=== PATIENT | female | born 2000 | race Native Hawaiian/Other Pacific Islander ===

== ENCOUNTER 2019-11-17 13:07 | Emergency (ER) | payer SELFPAY ==
[2019-11-17 13:13] VITALS: BP 139/90; PULSE 91; RESP 16; TEMP 36.6; O2SAT 100; BMI 33.8
--- NOTE | 2019-11-17 13:18 | DI.RAD.S_ITS ---
PROCEDURE: XR SHOULDER RT MIN 2V INDICATIONS: R shoulder pain/ swelling post injury TECHNIQUE: 3 views of the shoulder were acquired. COMPARISON: [facility], , CHEST 2 VIEW, 08/10/2016, 9:43. FINDINGS: Bones: No fractures or dislocations. No suspicious bony lesions. Visualized ribs appear intact. Borderline widening of the acromion clavicular joint is present. Soft tissues: No suspicious soft tissue calcifications. IMPRESSION: 1. No acute fracture of the right shoulder is evident. 2. Possible acromioclavicular joint separation injury. Please correlate clinically. Dictated by: José Smith M.D. on 11/17/2019 at 12:35 Approved by: José Smith M.D. on 11/17/2019 at 12:36
--- NOTE | 2019-11-17 13:38 | ED.UPPEXIN ---
HPI - Extremity Injury (Upper) <PASCUAL Smith - Last Filed: 11/17/19 20:31> General Chief Complaint: Extremity Injury, Upper Stated Complaint: thinks she dislocated shoulder Time Seen by Provider: 11/17/19 13:10 Source: patient Mode of arrival: Ambulatory History of Present Illness HPI narrative: 18-year-old female presents emergency department complaining of right shoulder pain. She states she ran out into this no in shorts and T-shirt and went to do a somersault but slipped and fell onto her right shoulder when her arm was hyperextended posteriorly. She complains of of a 6/10 dull aching pain the top of her shoulder that is worse with palpation, internal rotation. and arm extension. She took 800 mg of ibuprofen an hour ago. She denies any numbness, tingling, head injury, chest pain, collarbone pain, other injuries, nausea, vomiting, diarrhea, or other concerns. She denies any previous injury to her shoulder. Related Data Home Medications Medication Instructions Recorded Confirmed No Known Home Medications 11/17/19 11/17/19 Allergies Allergy/AdvReac Type Severity Reaction Status Date / Time No Known Drug Allergies Allergy Unverified 11/17/19 13:15 Review of Systems <PASCUAL Smith - Last Filed: 11/17/19 20:31> Review of Systems Narrative: REVIEW OF SYSTEMS: GENERAL: Denies fever or chills. HENT: No head trauma. EYES: No double vision or vision loss. CARDIOVASCULAR: No chest pain or syncope. RESPIRATORY: No shortness of breath or cough. GASTROINTESTINAL: No nausea, vomiting, diarrhea, or constipation. GENITOURINARY: No flank pain or dysuria. MUSCULOSKELETAL: Complains of right shoulder pain, see HPI. INTEGUMENTARY: No rash, lesions, or pruritus. NEURO: No numbness, tingling. PSYCH: No behavior or mood changes. Patient History <PASCUAL Smith - Last Filed: 11/17/19 20:31> Social History Smoking Status: Current every day smoker Smoking Status: Current every day smoker tobacco type: cigarettes Substance Use Type: marijuana Exam <PASCUAL Smith - Last Filed: 11/17/19 20:31> Initial Vital Signs Initial Vital Signs: Vital Signs Temperature 97.9 F 11/17/19 13:13 Pulse Rate 91 H 11/17/19 13:13 Respiratory Rate 16 11/17/19 13:13 Blood Pressure 139/90 11/17/19 13:13 Pulse Oximetry 100 11/17/19 13:13 PHYSICAL EXAMINATION: GENERAL: Well groomed, alert, and cooperative. Answers questions promptly and appropriately. Vital signs noted. HENT: Normocephalic, atraumatic. EYES: Symmetrical, sclera white, no periorbital swelling. CARDIOVASCULAR: S1 and S2 sounds normal. Regular rate and rhythm. RESPIRATORY: Normal respiratory rate, trachea midline, airway patent. No stridor, nasal flaring or accessory muscle use. MUSCULOSKELETAL: Moderate swelling to AC joint and shoulder. Decreased internal rotation and arm extension due to pain. No significant ecchymosis. No clavicle tenderness. No humeral, elbow, wrist, or hand tenderness. 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 Decreased deltoid strength due to pain. Normal gait and coordination. Equal tone and mass bilaterally. No spinal tenderness or deformities. EXTREMITIES: CMS intact. Radial pulses 2+ and intact bilaterally SKIN: Warm, dry, soft, appropriate color for ethnicity. No lesions, rashes, or wounds. NEURO: Alert and Oriented X 3. No sensory deficits. PSYCH: Appropriate affect and mood. <Shanthi Wiggins DO - Last Filed: 11/20/19 07:33> Initial Vital Signs Initial Vital Signs: Vital Signs Temperature 97.9 F 11/17/19 13:13 Pulse Rate 91 H 11/17/19 13:13 Respiratory Rate 16 11/17/19 13:13 Blood Pressure 139/90 11/17/19 13:13 Pulse Oximetry 100 11/17/19 13:13 Course <PASCUAL Smith - Last Filed: 11/17/19 20:31> Orders Ordered: ED Orders 11/17/19 13:18 XR shoulder RT min 2V Stat Consultations Consultation #1: Patient staffed with Dr. Wiggins. Vital Signs Vital signs: Vital Signs - 8 hr 11/17/19 13:13 Temperature 97.9 F Pulse Rate 91 H Respiratory Rate 16 Blood Pressure 139/90 Pulse Oximetry 100 <Shanthi Wiggins DO - Last Filed: 11/20/19 07:33> Orders Ordered: ED Orders 11/17/19 13:18 XR shoulder RT min 2V Stat Vital Signs Vital signs: Vital Signs - 8 hr 11/17/19 13:13 Temperature 97.9 F Pulse Rate 91 H Respiratory Rate 16 Blood Pressure 139/90 Pulse Oximetry 100 [facility] - Extremity Injury (Upper) <PASCUAL Smith - Last Filed: 11/17/19 20:31> Medical Records Attestation: I reviewed the patient's medical records. Lab Data Attestation: I reviewed the patient's lab results. Imaging Data Shoulder XR: Radiologist's Impression: [address] [address] XRay Report Signed Patient: Monae Antunez KMR#: [id number] : 2000Acct:[id number] Age/Sex: 18 / FDate of Service: 11/17/19 Loc: ED Accession Number: [id number] Procedure: XR shoulder RT min 2V Ordering Provider: Liz Chopra PROCEDURE: XR SHOULDER RT MIN 2V INDICATIONS: R shoulder pain/ swelling post injury TECHNIQUE: 3 views of the shoulder were acquired. COMPARISON: [facility], , CHEST 2 VIEW, 08/10/2016, 9:43. FINDINGS: Bones: No fractures or dislocations. No suspicious bony lesions. Visualized ribs appear intact. Borderline widening of the acromion clavicular joint is present. Soft tissues: No suspicious soft tissue calcifications. IMPRESSION: 1. No acute fracture of the right shoulder is evident. 2. Possible acromioclavicular joint separation injury. Please correlate clinically. Dictated by: José Smith M.D. on 11/17/2019 at 12:35 Approved by: José Smith M.D. on 11/17/2019 at 12:36 [facility] Narrative Medical decision making narrative: 18-year-old female complaining of traumatic right shoulder pain. X-ray shows possible AC separation which correlates with tenderness and swelling. Patient was given a sling she was encouraged to follow up with her primary care provider in 1-2 weeks for further evaluation. no concern for vascular compromise. Patient had already taken ibuprofen upon presentation to the emergency department. Return precautions given for new or worsening symptoms. Patient agreed with plan of care verbalized understanding. Discharge Plan Departure Patient Disposition: Home Clinical Impression: AC separation Qualifiers: Encounter type: initial encounter Laterality: right Qualified Code(s): S43.101A - Unspecified dislocation of right acromioclavicular joint, initial encounter Discharge Date/Time: 11/17/19 14:13 Instructions: DI for AC Joint Separation Activity Restrictions/Additional Instructions: Thank you for entrusting me with your care today. As discussed, your x-rays negative for fractures or dislocations. It is possible you have a acromioclavicular tear. We've given you a sling, uses as needed for stabilization and pain, remember to move your elbow and wrist frequently to prevent muscle wasting. Follow up with her primary care provider in 1-2 weeks for further evaluation. Return emergency department for new or worsening symptoms such as numbness, tingling, dizziness, syncope, chest pain, shortness of breath, or other concerns. Prescriptions: No Action No Known Home Medications RF: 0 Referrals: Khushbu Forrest ARNP [Primary Care Provider] - Stand Alone Forms: Work Release Note
== END 2019-11-17 14:13 | disposition home or self-care (01) ==
PROVIDERS: Emergency Provider Nurse Practitioner; PCP Nurse Practitioner
DX: S43.101A Unspecified dislocation of right acromioclavicular joint, initial encounter (principal); W00.0XXA Fall on same level due to ice and snow, initial encounter
CPT/HCPCS: 73030; 99283

== ENCOUNTER 2019-12-01 15:22 | Emergency (ER) | payer SELFPAY ==
[2019-12-01 15:24] VITALS: BP 122/82; PULSE 73; RESP 18; O2SAT 76
--- NOTE | 2019-12-01 17:03 | PC.NURSE ---
distal cms intact.
--- NOTE | 2019-12-02 01:27 | ED_ITS ---
HPI - Recheck/Abnormal Lab/Rx <PASCUAL Chavez - Last Filed: 12/02/19 01:44> General Chief Complaint: Recheck/Abnormal Lab/Rx Stated Complaint: re asssessment on shoulder/return to work Time Seen by Provider: 12/01/19 16:21 Source: patient Mode of arrival: Ambulatory Limitations: no limitations History of Present Illness HPI narrative: This is a 18-year-old female, smoker, who presents to ED requesting [employer] Return to Work Certification. Patient reports she had injured her right shoulder 2 weeks ago after she fell on ice and landed on her right shoulder. Patient was told she probably torn ligament on right shoulder. Patient states has been doing better and pain has been improved with increased range of motion. She has been taking [id number] ibuprofen for discomfort and inflammation. Patient does not have PCP and was not able to follow up with this injury after she was evaluated initially at walk-in clinic. Patient left dominant hand. 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 Related Data Home Medications Medication Instructions Recorded Confirmed No Known Home Medications 11/17/19 11/17/19 Allergies Allergy/AdvReac Type Severity Reaction Status Date / Time No Known Drug Allergies Allergy Unverified 11/17/19 13:15 Review of Systems <PASCUAL Chavez - Last Filed: 12/02/19 01:44> Review of Systems Narrative: General: Denies fever, chills, fatigue, malaise, sweats. HEENT: Denies sinus pain, ear pain, sore throat, difficulty swallowing, dizziness. Respiratory: Denies dyspnea, cough, wheezing, hemoptysis, sputum. Cardiovascular: Denies chest pain, palpitations, orthopnea, edema. Gastrointestinal: Denies nausea, vomiting, abdominal pain, diarrhea, constipation, melena. : Denies dysuria, frequency, incontinence, hematuria, urinary retention. Musculoskeletal: See HPI Skin: Denies rash, skin lesions, or other. Neurologic: Denies weakness, headache, numbness, change in speech, confusion, seizures, incoordination. Psychiatric: No concerning psychosocial issues. 12-point review of systems is negative except for those stated above. Patient History <PACSUAL Chavez - Last Filed: 12/02/19 01:44> Surgical History No pertinent past surgical history (Acute) Social History Smoking Status: Current every day smoker Smoking Status: Current every day smoker tobacco type: cigarettes alcohol intake frequency: 0-2 drinks per day Substance Use Type: marijuana Exam <PASCUAL Chavez - Last Filed: 12/02/19 01:44> Narrative Exam Narrative: General appearance: well developed, well nourished, in no acute distress. Head: normocephalic, atraumatic, no scalp lesions, non-tender. ENT: Hearing grossly intact. Nose without bleeding, purulent discharge, septal hematoma or deviation. Turbinate without erythema or swelling. Mucous membrane moist, no mucosal lesion. Throat without erythema, tonsillar hypertrophy or exudate. Uvula in midline, airway patent. Neck/Thyroid: neck supple, full range of motion, no visible masses or meningeal signs. No JVD, non-tender without lymphadenopathy. Skin: no suspicious rashes, lesions over visible areas. Warm and dry and appropriate color for ethnicity. Heart: no clubbing, no cyanosis, no edema. S1 and S2 normal. RRR w/o murmurs, clicks, or bruits. Lungs: Breathing even and unlabored. No stridor. No accessory muscles used. Able to speak in full sentences. Chest: normal shape and expansion. Abdomen: non-obese, non-distended. Neurologic: alert and oriented. Cognitive exam, PUBLIC HEALTH PHYSICIAN and PNS grossly intact on informal exam. Psych: good eye contact, normal affect. Initial Vital Signs Initial Vital Signs: Vital Signs Pulse Rate 73 12/01/19 15:24 Respiratory Rate 18 12/01/19 15:24 Blood Pressure 122/82 12/01/19 15:24 Pulse Oximetry 76 L 12/01/19 15:24 Extrem Right upper extremity: shoulder/upper arm Details: normal to inspection and abnormal ROM Details: with range as follows (forward flexion 90 degree, abduction 90 degree, limited internal and external rotation, decreased strength with grasp); no swelling, no crepitus, no deformity and no unusual warmth, elbow/forearm Details: normal to inspection and normal ROM; no tenderness and no swelling, wrist Details: normal to inspection, normal ROM, normal vascular exam and radial pulse present and hand Details: normal to inspection, normal capillary refill, neurosensory exam normal and normal ROM of fingers <Jose Devine MD - Last Filed: 12/02/19 21:33> Initial Vital Signs Initial Vital Signs: Vital Signs Pulse Rate 73 12/01/19 15:24 Respiratory Rate 18 12/01/19 15:24 Blood Pressure 122/82 12/01/19 15:24 Pulse Oximetry 76 L 12/01/19 15:24 Scores <PASCUAL Chavez - Last Filed: 12/02/19 01:44> GCS [place] coma scale eye opening: Spontaneous [place] coma scale verbal response: Orientated [place] coma scale motor response: Obey commands [place] coma scale total score: 15 MDM - Recheck/Abnormal Lab/Rx <PASCUAL Chavez - Last Filed: 12/02/19 01:44> Differential Diagnosis Differential diagnosis: Likely other (encounter for evaluation for work certification) Medical Records Attestation: I reviewed the patient's medical records. [facility] Narrative Medical decision making narrative: This is a 18 year old female who presented to ED requesting return to work certification after injury to R shoulder 2wks ago. Preprinted form was filled with work modification from 12/02/19 to 01/02/2020 and to get another evaluation for another release. R upper extremity use modification for LITF , Carry, and Push/pull with forceful Grasp and work above shoulder and crawl. This form has been copied after instruction has been filled and signed to keep it in medical record. Patient advised to find PCP and receive a referral to a physical therapist. Review brief rehabilitation exercises at home with rubber band to strength it increased flexibility. Patient verbalized understanding and agrees with the treatment plan. Discharge Plan Departure Patient Disposition: Home Clinical Impression: Encounter for rehabilitation evaluation Discharge Date/Time: 12/01/19 17:04 Instructions: DI for Shoulder Pain Activity Restrictions/Additional Instructions: You have been diagnosed with [ improving R shoulder injury and an encounter for an evaluation to return to work ]. What to do: *Take your medications as directed. Please continue to take ibuprofen 400-600 mg 3 times a day with food. You can add Tylenol 650 mg 4 times a day as needed for discomfort. You were provided with copy of work modification form from your work which was filled. *Follow up with your primary care provider in 2-3 days, call for an appointment. Let them know you were seen in the ED and that we asked you to be seen in follow up. It is best if you get a referral for physical therapist to rehabilitate and work on her strength and flexibility. *Return to ED if you have any new, worsening, or concerning symptoms, such as [chest pain, breathing difficulty, unable to tolerate fluids, worsening pain, fever or any acute concerns.]. Prescriptions: No Action No Known Home Medications RF: 0 Referrals: Khushbu Forrest ARNP [Primary Care Provider] -
== END 2019-12-01 17:04 | disposition home or self-care (01) ==
PROVIDERS: Emergency Provider Nurse Practitioner Family; Family Provider Nurse Practitioner; PCP Nurse Practitioner
DX: Z01.89 Encounter for other specified special examinations (principal); S49.91XA Unspecified injury of right shoulder and upper arm, initial encounter; W00.0XXA Fall on same level due to ice and snow, initial encounter; Y99.0 Civilian activity done for income or pay
CPT/HCPCS: 99281; 99283

== ENCOUNTER 2021-03-03 10:29 | Emergency (ER) | payer OTHER, SELFPAY ==
[2021-03-03 11:03] VITALS: BP 121/82; PULSE 76; RESP 14; TEMP 36.7; O2SAT 100; BMI 22.4
[2021-03-03 11:25] LABS: Add Manual Diff / Slide Review NO; Basophils Absolute Auto 100 /uL (0-100); Basophils Percent Auto 0.6 % (0-2); Eosinophils Absolute Auto 100 /uL (0-450); Eosinophils Percent Auto 0.7 % (2-4); Hematocrit 35.4 % (36-46); Hemoglobin 11.8 g/dL (12.0-16.0); Lymphocytes Absolute Auto 1800 /uL (1100-4500); Lymphocytes Percent Auto 21.6 % (25-40); Mean Corpuscular HGB Conc 33.3 % (30-36); Mean Corpuscular Hemoglobin 29.6 PG (26-34); Mean Corpuscular Volume 88.8 fL (80-100); Monocytes Absolute Auto 500 /uL (0-900); Monocytes Percent Auto 6.1 % (3-14); Neutrophils Absolute Auto 5900 /uL (1500-7000); Platelet Count 370 X10^3/uL (150-400); Red Blood Cell Count 3.98 X10^6/uL (4.0-5.2); Red Cell Distribution Width 12.4 % (11.6-14.8); White Blood Cell Count 8.3 X10^3/uL (4.5-11.0)
[2021-03-03 11:29] LABS: INR 1.2 (0.9-1.3); Prothrombin Time 13.2 SECONDS (10.1-12.7)
[2021-03-03 11:30] LABS: Bacteria Urine None Seen; RBC Urine None Seen (0-5/HPF); WBC Urine None Seen (0-5/HPF)
[2021-03-03 11:32] LABS: PTT Partial Thromboplastin Tim 32 SECONDS (26.4-36.2)
[2021-03-03 11:34] LABS: Alanine Aminotransferase 17 IU/L (<35); Albumin 4.5 g/dL (3.5-5.0); Albumin Globulin Ratio 1.1 (1.0-2.8); Alkaline Phosphatase 72 U/L (38-126); Aspartate Aminotransferase 33 IU/L (14-36); Bilirubin Total 0.2 mg/dL (0.2-1.3); Blood Urea Nitrogen 11 mg/dL (7-17); Calcium 9.8 mg/dL (8.4-10.2); Carbon Dioxide 28 mmol/L (22-32); Chloride 103 mmol/L (98-107); Estimated Glomerular Filt Rate > 60.0 mL/min (>60); Glucose 91 mg/dL (70-100); HEMOLYSIS < 15 (0-50); Lipase 34 U/L (23-300); Potassium 3.9 mmol/L (3.4-5.1); Sodium 140 mmol/L (137-145); Total Protein 8.5 g/dL (6.3-8.2)
[2021-03-03 11:37] LABS: Culture Indicated Urine Cult Not Indicated; Squamous Epithelial Cell Urine 5-10 /HPF (0-5/HPF)
--- NOTE | 2021-03-03 12:36 | ED_ITS ---
HPI - Abdominal Pain General Chief Complaint: Abdominal Pain Stated Complaint: pain right side abd Time Seen by Provider: 03/03/21 12:34 Source: patient Mode of arrival: Ambulatory Limitations: no limitations History of Present Illness HPI narrative: 20-year-old woman with no significant medical history is been having right-sided abdominal pain for a number of days. Is continuing to worsen. She describes no fever, cough, chills, diarrhea, vomiting, vaginal spotting, vaginal discharge. Related Data Home Medications Medication Instructions Recorded Confirmed No Known Home Medications 11/17/19 11/17/19 Allergies Allergy/AdvReac Type Severity Reaction Status Date / Time No Known Drug Allergies Allergy Verified 03/03/21 11:03 Review of Systems Review of Systems Narrative: Remainder of complete review of systems is otherwise unremarkable except for that included in the HPI. Patient History Surgical History No pertinent past surgical history Social History Smoking Status: Current every day smoker Smoking Status: Current every day smoker tobacco type: vaping alcohol intake frequency: holidays/special occasions only Substance Use Type: marijuana Exam Narrative Exam Narrative: General: Healthy appearing, in no acute distress. Able to give a complete and coherent history. Well-nourished well-developed HEENT: Moist mucous membranes, normal sclera with reactive pupils, Respiratory: Lungs are clear to auscultation, no wheezing no rales no rhonchi. Full and symmetrical air movement Cardiac: Regular rate and rhythm no murmurs no bruits Abdomen: Soft, tender in the entire right side of the abdomen without rebound or guarding. No specific right lower quadrant pain to suggest appendicitis no specific McBurney's point tenderness to suggest gallstones. Good bowel tones, no flank pain Skin: Warm and dry, no rashes Neurologic: Grossly neurologically intact with no obvious asymmetries or abnormalities Extremities: No trauma, well perfused Psych: Cooperative, appropriate insight and affect Initial Vital Signs Initial Vital Signs: Vital Signs Temperature 98.1 F 03/03/21 11:03 Pulse Rate 76 03/03/21 11:03 Respiratory Rate 14 03/03/21 11:03 Blood Pressure 121/82 03/03/21 11:03 Pulse Oximetry 100 03/03/21 11:03 Course Orders Ordered: ED Orders 03/03/21 11:07 Urine Microscopic Stat 03/03/21 11:16 Complete Blood Count AUTO DIFF Stat Comprehensive Metabolic Panel Stat Lipase Stat Partial Thromboplastin Time Stat Prothrombin Time INR Stat 03/03/21 12:47 XR abdomen 1V Stat 03/03/21 14:42 US abdomen limited Stat 03/03/21 15:56 CT abdomen pelvis w con Stat Discontinued Medications Ketorolac Tromethamine (Ketorolac 30 Mg/Ml Vial) 15 mg IV NOW ONE Stop: 03/03/21 18:27 Vital Signs Vital signs: Vital Signs - 8 hr 03/03/21 11:03 03/03/21 14:44 Temperature 98.1 F Pulse Rate 76 72 Respiratory Rate 14 16 Blood Pressure 121/82 112/62 Pulse Oximetry 100 100 MDM - Abdominal Pain Medical Records Attestation: I reviewed the patient's medical records. Lab Data Attestation: I reviewed the patient's lab results. Result diagrams: 03/03/21 11:16 03/03/21 11:16 Labs: Lab Results 03/03/21 03/03/21 03/03/21 Range/Units 11:07 11:16 11:16 WBC 8.3 (4.5-11.0) X10^3/uL RBC 3.98 L (4.0-5.2) X10^6/uL Hgb 11.8 L (12.0-16.0) g/dL Hct 35.4 L (36-46) % MCV 88.8 (80-100) fL MCH 29.6 (26-34) PG MCHC 33.3 (30-36) % RDW 12.4 (11.6-14.8) % Plt Count 370 (150-400) X10^3/uL Neut % (Auto) 71.0 (50-75) % Lymph % (Auto) 21.6 L (25-40) % Storey % (Auto) 6.1 (3-14) % Eos % (Auto) 0.7 L (2-4) % Baso % (Auto) 0.6 (0-2) % Neut # (Auto) 5900 (2461-5613) /uL Lymph # (Auto) 1800 (8018-4422) /uL Storey # (Auto) 500 (0-900) /uL Eos # (Auto) 100 (0-450) /uL Baso # (Auto) 100 (0-100) /uL PT 13.2 H (10.1-12.7) SECONDS INR 1.2 (0.9-1.3) APTT 32 (26.4-36.2) SECONDS Sodium (137-145) mmol/L Potassium (3.4-5.1) mmol/L Chloride (98-107) mmol/L Carbon Dioxide (22-32) mmol/L BUN (7-17) mg/dL Creatinine (0.52-1.04) mg/dL Estimated GFR (>60) mL/min BUN/Creatinine Ratio (6-22) Glucose (70-100) mg/dL Calcium (8.4-10.2) mg/dL Total Bilirubin (0.2-1.3) mg/dL AST (14-36) IU/L ALT (<35) IU/L Alkaline Phosphatase (38-126) U/L Total Protein (6.3-8.2) g/dL Albumin (3.5-5.0) g/dL Globulin (1.7-4.1) g/dL Albumin/Globulin Ratio (1.0-2.8) Lipase (23-300) U/L Urine RBC None seen (0-5/HPF) Urine WBC None seen (0-5/HPF) Ur Squamous Epith Cells 5-10 /hpf H (0-5/HPF) Urine Bacteria None seen (None) Ur Culture Indicated? Cult not indicated 03/03/21 Range/Units 11:16 WBC (4.5-11.0) X10^3/uL RBC (4.0-5.2) X10^6/uL Hgb (12.0-16.0) g/dL Hct (36-46) % MCV (80-100) fL MCH (26-34) PG MCHC (30-36) % RDW (11.6-14.8) % Plt Count (150-400) X10^3/uL Neut % (Auto) (50-75) % Lymph % (Auto) (25-40) % Storey % (Auto) (3-14) % Eos % (Auto) (2-4) % Baso % (Auto) (0-2) % Neut # (Auto) (8162-4780) /uL Lymph # (Auto) (1674-5079) /uL Storey # (Auto) (0-900) /uL Eos # (Auto) (0-450) /uL Baso # (Auto) (0-100) /uL PT (10.1-12.7) SECONDS INR (0.9-1.3) APTT (26.4-36.2) SECONDS Sodium 140 (137-145) mmol/L Potassium 3.9 (3.4-5.1) mmol/L Chloride 103 (98-107) mmol/L Carbon Dioxide 28 (22-32) mmol/L BUN 11 (7-17) mg/dL Creatinine 0.55 (0.52-1.04) mg/dL Estimated GFR > 60.0 (>60) mL/min BUN/Creatinine Ratio 20.0 (6-22) Glucose 91 (70-100) mg/dL Calcium 9.8 (8.4-10.2) mg/dL Total Bilirubin 0.2 (0.2-1.3) mg/dL AST 33 (14-36) IU/L ALT 17 (<35) IU/L Alkaline Phosphatase 72 (38-126) U/L Total Protein 8.5 H (6.3-8.2) g/dL Albumin 4.5 (3.5-5.0) g/dL Globulin 4.0 (1.7-4.1) g/dL Albumin/Globulin Ratio 1.1 (1.0-2.8) Lipase 34 (23-300) U/L Urine RBC (0-5/HPF) Urine WBC (0-5/HPF) Ur Squamous Epith Cells (0-5/HPF) Urine Bacteria (None) Ur Culture Indicated? Point of care testing: Point of Care Testing Test Results Negative Urine Dip Bedside Urine Glucose Negative Bedside Urine Bilirubin - Negative Bedside Urine Ketone ++ 40 Urine Specific [place] 1.030 Bedside Urine Occult Blood - Negative Bedside Urine pH 6 Bedside Urine Protein +/- 15 Bedside Urine Urobilinogen - Negative Bedside Urine Nitrite - Negative Bedside Urine Leukocytes - Negative Esterase Imaging Data US - abdomen: Radiologist's Impression: FINDINGS: LIVER: The liver has no mass or intrahepatic biliary ductal dilatation. The portal vein hepatic veins are patent. Hepatic parenchymal echogenicity is normal. GALLBLADDER: No gallstones are identified. No gallbladder wall thickening or pericholecystic fluid. BILIARY DUCTS: Intrahepatic bile ducts are non-dilated. Extrahepatic bile duct caliber measures 2.0 mm. Normal is 6-7 mm or less in diameter, or 10 mm or less post-cholecystectomy. PANCREAS: The visualized pancreas has no mass or pancreatic ductal dilatation. IMPRESSION: Normal gallbladder ultrasound. Dictated by: Altaf Plascencia M.D. on 03/03/2021 at 15:09 Abdominal x-ray: Radiologist's Impression: FINDINGS: Surgical changes and devices: None. Bowel: There is bowel gas in the right lower quadrant and and rectum. There is relative paucity of small bowel gas. Soft tissues: No suspicious abdominal calcifications. Visualized solid organ contours appear normal in size. Bones: No suspicious bony lesions. IMPRESSION: Nonspecific bowel gas pattern. Dictated by: Jarrod Lopez M.D. on 03/03/2021 at 13:41 MDM Narrative Medical decision making narrative: 20-year-old woman with days of right-sided abdominal pain with normal blood work and nonspecific complaints overall. Initial concern was for constipation. Abdominal x-ray does not show significant stool load. Right upper quadrant ultrasound was then ordered which revealed a normal gallbladder. With the continued persistent pain we proceeded on to a CT scan of the abdomen which shows a probable right ovarian cyst ruptured with a small amount of free fluid in the pelvis. She is not to be concern for ectopic or rupture. Ultrasound does not show acute appendicitis or o ther acute intra-abdominal pathology. She is hemodynamically stable and showing no signs of internal hemorrhage. Reassurance is given. Pain is improved somewhat with Toradol. She is safe for home discharge Discharge Plan Departure Patient Disposition: Home Clinical Impression: Ovarian cyst Qualifiers: Laterality: right Qualified Code(s): N83.201 - Unspecified ovarian cyst, right side Instructions: DI for Ovarian Cyst Activity Restrictions/Additional Instructions: Thank you for coming in today I suspect that the pain that you have been experiencing is related to an ovarian cyst on the right side that has now ruptured. You do not have any gallstones or an abnormal gallbladder nor do you have any problems with your lungs or liver. No kidney abnormalities and no kidney stones. There is no evidence of ongoing bleeding or other concerns. Your body will reabsorb this fluid and you will feel better. Using 400 mg of ibuprofen (2 [id number] pills) and 1 Tylenol every 6 hours can be very helpful in controlling pain. If you have worsening symptoms or concerns please feel free to return to the emergency department Prescriptions: No Action No Known Home Medications RF: 0
--- NOTE | 2021-03-03 12:47 | DI.RAD.S_ITS ---
PROCEDURE: XR ABDOMEN 1V INDICATIONS: abdominal pain TECHNIQUE: One view of the abdomen acquired. COMPARISON: None. FINDINGS: Surgical changes and devices: None. Bowel: There is bowel gas in the right lower quadrant and and rectum. There is relative paucity of small bowel gas. Soft tissues: No suspicious abdominal calcifications. Visualized solid organ contours appear normal in size. Bones: No suspicious bony lesions. IMPRESSION: Nonspecific bowel gas pattern. Dictated by: Jarrod Lopez M.D. on 03/03/2021 at 13:41 Approved by: Jarrod Lopez M.D. on 03/03/2021 at 13:42
--- NOTE | 2021-03-03 14:42 | DI.US.S_ITS ---
PROCEDURE: US ABDOMEN LIMITED INDICATIONS: RUQ pain TECHNIQUE: Real-time focused scanning was performed of the abdomen, with image documentation. COMPARISON: None. FINDINGS: LIVER: The liver has no mass or intrahepatic biliary ductal dilatation. The portal vein hepatic veins are patent. Hepatic parenchymal echogenicity is normal. GALLBLADDER: No gallstones are identified. No gallbladder wall thickening or pericholecystic fluid. BILIARY DUCTS: Intrahepatic bile ducts are non-dilated. Extrahepatic bile duct caliber measures 2.0 mm. Normal is 6-7 mm or less in diameter, or 10 mm or less post-cholecystectomy. PANCREAS: The visualized pancreas has no mass or pancreatic ductal dilatation. IMPRESSION: Normal gallbladder ultrasound. Dictated by: Altaf Plascencia M.D. on 03/03/2021 at 15:09 Approved by: Altaf Plascencia M.D. on 03/03/2021 at 15:11
[2021-03-03 14:44] VITALS: BP 112/62; PULSE 72; RESP 16; O2SAT 100
--- NOTE | 2021-03-03 15:56 | DI.CT.S_ITS ---
PROCEDURE: CT ABDOMEN PELVIS W CON INDICATIONS: Right abdominal pain TECHNIQUE: After the administration of intravenous contrast, 5 mm thick sections acquired from the diaphragm to the symphysis. 5 mm coronal and sagittal reformats were acquired. For radiation dose reduction, the following was used: automated exposure control, adjustment of mA and/or kV according to patient size. COMPARISON: [facility], , US ABDOMEN LIMITED, 03/03/2021, 13:54. FINDINGS: Image quality: Excellent. ABDOMEN: Lung bases: Lung bases are clear. Heart size is normal. Solid organs: Liver is normal in size and enhancement. Gallbladder is normal. Biliary system is non dilated. Pancreas enhances normally. Spleen is normal in size and enhancement. No adrenal nodules. Kidneys demonstrate normal size and enhancement, without hydronephrosis. Peritoneum and bowel: Appendix is normal. Bowel loops demonstrate normal wall thickness and caliber. No free air. There is a moderate amount of free fluid in the deep pelvis. There is omental haziness. Nodes and vessels: No retroperitoneal or mesenteric adenopathy by size criteria. Aorta and inferior vena cava are normal in size. Miscellaneous: No ventral hernias. PELVIS: Genitourinary: Bladder wall thickness is normal. Uterus is unremarkable. There is air within the vagina. Bilateral ovarian cysts are present. There is a moderate amount of free fluid in the cul-de-sac. Miscellaneous: No inguinal hernias or adenopathy. Bones: No suspicious bony lesions. No vertebral body compression fractures. IMPRESSION: 1. Normal appendix. 2. Bilateral ovarian cysts are present. There is a moderate amount of free fluid in pelvis. The CT findings suggest ruptured ovarian cysts. Pelvic ultrasound may be helpful for further evaluation. 3. There is omental haziness. This finding could be associated with omental carcinomatosis or nonspecific inflammation. Recommend clinical correlation and follow-up. Dictated by: Jarrod Lopez M.D. on 03/03/2021 at 17:05 Approved by: Jarrod Lopez M.D. on 03/03/2021 at 17:19
[2021-03-03] MEDS: KETOROLAC 30 MG/ML VIAL 15 MG IV (18:38)
[2021-03-03 19:01] VITALS: BP 97/63; PULSE 73; RESP 16; TEMP 36.6; O2SAT 100
== END 2021-03-03 19:02 | disposition home or self-care (01) ==
PROVIDERS: Emergency Provider Emergency Medicine; Family Provider Nurse Practitioner
DX: N83.201 Unspecified ovarian cyst, right side (principal)
CPT/HCPCS: 36415; 74018; 74177; 76705; 80053; 81003; 81015; 81025; 83690; 85025; 85610; 85730; 96374; 99284; J1885